=== PATIENT | male | born 1990 | race Caucasian/White ===

== ENCOUNTER 2021-08-14 18:43 | Emergency (ER) | payer MEDICAID ==
[~2021-08-14] VITALS: Ht 190.5 cm; Wt 104.3 kg
[2021-08-14 20:09] LABS: Basophils # (auto) 0 10 ^3/uL (0-0.2); Basophils % (auto) 0.4 % (0.0-2.0); Eosinophils # (auto) 0.1 10 ^3/uL (0-0.8); Eosinophils % (auto) 0.9 % (0.0-7.0); Hematocrit 44.6 % (41.0-53.0); Hemoglobin 15.1 g/dL (13.5-17.5); Lymphocytes # (auto) 2.2 10 ^3/uL (0.4-5.4); Lymphocytes % (auto) 18.9 % (10.0-50.0); Mean Corpuscular Hemoglobin 29.4 pg (28.0-32.0); Mean Corpuscular Hgb Conc. 33.9 g/dL (32.0-36.0); Mean Corpuscular Volume 86.8 fL (80.0-100.0); Monocytes # (auto) 0.9 10 ^3/uL (0-1.3); Monocytes % (auto) 7.9 % (0.0-12.0); Neutrophils # (auto) 8.5 10 ^3/uL (1.6-8.6); Neutrophils % (auto) 71.9 % (37.0-80.0); Nucleated Red Blood Cells % 0.1 %; Red Blood Cells 5.14 10^6/uL (4.5-5.90); Red Cell Distribution Width 13.7 % (11.8-14.3); White Blood Cell 11.8 10^3/uL (4.4-10.8)
[2021-08-14 20:26] LABS: Potassium 4.1 mmol/L (3.5-5.1)
[2021-08-14 20:37] LABS: Albumin 4.8 g/dL (3.4-5.0); BUN/Creatinine Ratio 10.7; Bilirubin, Total 0.4 mg/dL (0.2-1.0); Calcium 10.2 mg/dL (8.5-10.1); Total Protein 8.8 g/dL (6.4-8.2)
[2021-08-15] MEDS ORDERED: PERCOT PO (02:00)
[2021-08-15] MEDS ORDERED: CIPR-173 PO (02:00)
[2021-08-15 02:27] VITALS: BP 159/110
== END 2021-08-15 02:29 | disposition home or self-care (01) ==
LOC: ER 18:43
DX: K29.70 Gastritis, unspecified, without bleeding (principal)
CPT/HCPCS: 36415; 74176; 80053; 83690; 84484; 85025; 93005

== ENCOUNTER 2023-03-15 20:23 | Emergency (ER) | payer MEDICAID ==
[~2023-03-15] VITALS: Ht 182.9 cm; Wt 113.0 kg
[~2023-03-15 20:23] MED LIST: CIPR-173 PO; PERCOT PO
[2023-03-15 21:30] LABS: Basophils # (auto) 0 10 ^3/uL (0-0.2); Basophils % (auto) 0.4 % (0.0-2.0); Eosinophils # (auto) 0.1 10 ^3/uL (0-0.8); Eosinophils % (auto) 0.5 % (0.0-7.0); Hematocrit 45.3 % (41.0-53.0); Hemoglobin 14.6 g/dL (13.5-17.5); Lymphocytes # (auto) 2.2 10 ^3/uL (0.4-5.4); Lymphocytes % (auto) 18.3 % (10.0-50.0); Mean Corpuscular Hemoglobin 28.2 pg (28.0-32.0); Mean Corpuscular Hgb Conc. 32.4 g/dL (32.0-36.0); Mean Corpuscular Volume 87.1 fL (80.0-100.0); Monocytes # (auto) 0.7 10 ^3/uL (0-1.3); Monocytes % (auto) 5.6 % (0.0-12.0); Neutrophils % (auto) 75.2 % (37.0-80.0); Nucleated Red Blood Cells % 0.1 %; Red Cell Distribution Width 13.5 % (11.8-14.3)
[2023-03-15 21:51] LABS: Alanine Aminotransferase 33 U/L (7-40); Albumin 5.3 g/dL (3.2-4.8); Alkaline Phosphatase 51 U/L (46-116); Anion Gap 10 (5-15); Aspartate Aminotransferase 17 U/L (13-40); BUN/Creatinine Ratio 11.9 (10.0-20.0); Blood Alcohol 276.8 mg/dL (<10); Blood Urea Nitrogen 12 mg/dL (9-23); Calcium 9.1 mg/dL (8.7-10.4); Carbon Dioxide 24 mmol/L (20-30); Chloride 108 mmol/L (98-107); Glucose 116 mg/dL (74-106); Potassium 3.8 mmol/L (3.5-5.1); Sodium 142 mmol/L (136-145)
[2023-03-15 21:52] LABS: Bilirubin, Total 0.4 mg/dL (0.2-1.0); Total Protein 7.9 g/dL (5.7-8.2)
[2023-03-15] MEDS ORDERED: SODIUM CHLORIDE 0.9% 1,000 ML IV ONE (22:15)
[2023-03-15 22:58] VITALS: PULSE 119; RESP 20; O2SAT 100
[2023-03-15] MEDS ORDERED: HYDROcodone-ACET 10/325MG TAB PO ONE (23:00)
[2023-03-15] MEDS ORDERED: ONDANSETRON HCL 4 MG/2 ML VIAL IV ONE (23:15)
[2023-03-15] MEDS ORDERED: KETOROLAC TROMETH 30 MG/ML 1ML VIAL IV ONE (23:15)
[2023-03-15] MEDS ORDERED: ONDANSETRON HCL 4 MG/2 ML VIAL ONE (23:58)
[2023-03-16] MEDS ORDERED: KETOROLAC TROMETH 30 MG/ML 1ML VIAL ONE
[2023-03-16] MEDS ORDERED: HYDROcodone-ACET 10/325MG TAB ONE
[2023-03-16] MEDS ORDERED: HYDROmorphone HCL 2 MG/ML VL/or syr IM ONE (01:30)
[2023-03-16] MEDS ORDERED: IBUP-1456 PO (02:10)
[2023-03-16] MEDS ORDERED: PERCOT PO (02:10)
[2023-03-16 03:08] VITALS: BP 121/52; PULSE 113; RESP 18; TEMP 99; O2SAT 93
[2023-03-16] MEDS ORDERED: HYDR-3682 PO (10:56)
[2023-03-17] MEDS ORDERED: SIMV20TA20 PO (22:59)
== END 2023-03-16 03:09 | disposition home or self-care (01) ==
LOC: ER 20:23
DX: S82.302A Unspecified fracture of lower end of left tibia, initial encounter for closed fracture (principal); S82.832A Other fracture of upper and lower end of left fibula, initial encounter for closed fracture; Z79.2 Long term (current) use of antibiotics; Z79.899 Other long term (current) drug therapy; X58.XXXA Exposure to other specified factors, initial encounter; Y93.89 Activity, other specified; Y92.89 Other specified places as the place of occurrence of the external cause; Y99.8 Other external cause status
CPT/HCPCS: 29515; 36415; 72170; 73552; 73590; 80053; 80320; 85025; 96361; 96372; 96374; 96375; 99284; J1170; J1885; J2405; J7030

== ENCOUNTER 2023-03-16 08:28 | Emergency (ER) | payer MEDICAID ==
[~2023-03-16] VITALS: Ht 188 cm; Wt 105.0 kg
[~2023-03-16 08:28] MED LIST changes: +IBUP-1456 PO
[2023-03-16] MEDS ORDERED: LORazepam 0.5 MG TAB PO ONE (09:00)
[2023-03-16 09:38] VITALS: BP 158/86; PULSE 107; RESP 18; TEMP 98.2; O2SAT 99
[2023-03-16] MEDS: HYDROcodone-ACET 5/325MG TAB PO ONE ×2 (09:45→10:26)
[2023-03-16] MEDS ORDERED: ONDANSETRON ODT 4 MG TAB PO ONE (10:45)
[2023-03-16] MEDS ORDERED: HYDR-3682 PO (10:56)
[2023-03-17] MEDS ORDERED: SIMV20TA20 PO (22:59)
== END 2023-03-16 12:46 | disposition home or self-care (01) ==
LOC: ER 08:28
DX: S82.202D Unspecified fracture of shaft of left tibia, subsequent encounter for closed fracture with routine healing (principal); S82.402D Unspecified fracture of shaft of left fibula, subsequent encounter for closed fracture with routine healing; F41.0 Panic disorder [episodic paroxysmal anxiety]; X58.XXXD Exposure to other specified factors, subsequent encounter

== ENCOUNTER 2023-03-17 17:48 | Inpatient (IN) | payer MEDICAID ==
[~2023-03-17] VITALS: Ht 188 cm; Wt 127.3 kg
[~2023-03-17 17:48] MED LIST changes: +HYDR-3682 PO
[2023-03-17] MEDS ORDERED: ONDANSETRON ODT 4 MG TAB PO ONE (20:45)
[2023-03-17] MEDS ORDERED: HYDROmorphone HCL 2 MG/ML VL/or syr IM ONE (20:45)
[2023-03-17] MEDS ORDERED: ENOXAPARIN SOD 100 MG/1 ML SYRINGE SC ONE (22:00)
[2023-03-17 22:25] LABS: Basophils # (auto) 0 10 ^3/uL (0-0.2); Basophils % (auto) 0.4 % (0.0-2.0); Eosinophils # (auto) 0.1 10 ^3/uL (0-0.8); Eosinophils % (auto) 0.4 % (0.0-7.0); Hematocrit 39.4 % (41.0-53.0); Hemoglobin 12.9 g/dL (13.5-17.5); Lymphocytes # (auto) 2.4 10 ^3/uL (0.4-5.4); Lymphocytes % (auto) 20.9 % (10.0-50.0); Mean Corpuscular Hemoglobin 28.1 pg (28.0-32.0); Mean Corpuscular Hgb Conc. 32.7 g/dL (32.0-36.0); Mean Corpuscular Volume 86.1 fL (80.0-100.0); Monocytes # (auto) 1.1 10 ^3/uL (0-1.3); Monocytes % (auto) 9.2 % (0.0-12.0); Neutrophils # (auto) 7.9 10 ^3/uL (1.6-8.6); Neutrophils % (auto) 69.1 % (37.0-80.0); Red Blood Cells 4.58 10^6/uL (4.5-5.90); Red Cell Distribution Width 13.9 % (11.8-14.3); White Blood Cell 11.5 10^3/uL (4.4-10.8)
[2023-03-17 22:27] LABS: Alanine Aminotransferase 29 U/L (7-40); Albumin 4.9 g/dL (3.2-4.8); Alkaline Phosphatase 57 U/L (46-116); Anion Gap 7 (5-15); Aspartate Aminotransferase 24 U/L (13-40); Bilirubin, Total 0.5 mg/dL (0.2-1.0); Blood Urea Nitrogen 10 mg/dL (9-23); Carbon Dioxide 27 mmol/L (20-30); Chloride 105 mmol/L (98-107); Glucose 101 mg/dL (74-106); Potassium 3.7 mmol/L (3.5-5.1); Sodium 139 mmol/L (136-145); Total Protein 7.3 g/dL (5.7-8.2)
[2023-03-17 22:37] LABS: INR 0.93 (0.9-1.15); Partial Thromboplastin Time 26.6 SEC (24.5-34.5); Prothrombin Time 9.8 sec (9.3-11.8)
[2023-03-17] MEDS ORDERED: cefTRIAXone 1GM/50ML D5W 50 ML IV ONE (22:45)
[2023-03-17] MEDS ORDERED: ACETAMINOPHEN 325 MG TAB PO PRN (22:45)
[2023-03-17] MEDS ORDERED: SIMV20TA20 PO (22:59)
[2023-03-18] MEDS: SODIUM CHLORIDE 0.9% 1,000 ML IV SCH ×4 (01:17→18:45)
[2023-03-18] MEDS: ONDANSETRON HCL 4 MG/2 ML VIAL IV PRN ×5 (01:41→23:18)
[2023-03-18] MEDS: MORPHINE SULFATE INJ 2 MG/ml SYRG IV PRN ×4 (01:43→23:19)
[2023-03-18 05:06] LABS: Basophils # (auto) 0 10 ^3/uL (0-0.2); Basophils % (auto) 0.4 % (0.0-2.0); Eosinophils # (auto) 0 10 ^3/uL (0-0.8); Eosinophils % (auto) 0.2 % (0.0-7.0); Hematocrit 35.9 % (41.0-53.0); Hemoglobin 11.9 g/dL (13.5-17.5); Lymphocytes # (auto) 2.2 10 ^3/uL (0.4-5.4); Lymphocytes % (auto) 21.1 % (10.0-50.0); Mean Corpuscular Hemoglobin 28.5 pg (28.0-32.0); Mean Corpuscular Hgb Conc. 33.2 g/dL (32.0-36.0); Mean Corpuscular Volume 85.7 fL (80.0-100.0); Monocytes % (auto) 9.3 % (0.0-12.0); Neutrophils # (auto) 7.2 10 ^3/uL (1.6-8.6); Nucleated Red Blood Cells % 0.2 %; Red Blood Cells 4.18 10^6/uL (4.5-5.90); Red Cell Distribution Width 13.6 % (11.8-14.3); White Blood Cell 10.5 10^3/uL (4.4-10.8)
[2023-03-18 05:29] LABS: Alanine Aminotransferase 25 U/L (7-40); Albumin 4.5 g/dL (3.2-4.8); Alkaline Phosphatase 51 U/L (46-116); Anion Gap 8 (5-15); Aspartate Aminotransferase 21 U/L (13-40); Bilirubin, Total 0.7 mg/dL (0.2-1.0); Blood Urea Nitrogen 9 mg/dL (9-23); Calcium 8.4 mg/dL (8.7-10.4); Carbon Dioxide 25 mmol/L (20-30); Chloride 105 mmol/L (98-107); Glucose 114 mg/dL (74-106); Potassium 3.3 mmol/L (3.5-5.1); Sodium 138 mmol/L (136-145)
[2023-03-18 05:30] LABS: Total Protein 6.5 g/dL (5.7-8.2)
[2023-03-18] MEDS: HYDROcodone-ACET 5/325MG TAB PO PRN ×3 (05:48→21:05)
[2023-03-18 07:30] VITALS: PULSE 100; RESP 13; O2SAT 96
[2023-03-18] MEDS: cefTRIAXone 1GM/50ML D5W 50 ML IV SCH (09:09)
[2023-03-18] MEDS: HEPARIN DRIP/D5W 100UNITS/ML 250 ML IV SCH ×3 (09:49→23:00)
[2023-03-18] MEDS: PANTOPRAZOLE 40 MG/10 ML VIAL INJ IV SCH (11:44)
[2023-03-18] MEDS ORDERED: MORPHINE SULFATE 4 MG/ML SYR/VIAL IV PRN (13:45)
[2023-03-18 16:45] LABS: INR 0.97 (0.9-1.15); Partial Thromboplastin Time 48.1 SEC (24.5-34.5); Prothrombin Time 10.2 sec (9.3-11.8)
[2023-03-18 22:35] VITALS: BP 120/85; PULSE 94; RESP 18; TEMP 98.4; O2SAT 95
[2023-03-19] MEDS: SODIUM CHLORIDE 0.9% 1,000 ML IV SCH ×5 (00:18→21:40)
[2023-03-19 00:22] LABS: INR 0.97 (0.9-1.15); Partial Thromboplastin Time 61.6 SEC (24.5-34.5); Prothrombin Time 10.2 sec (9.3-11.8)
[2023-03-19] MEDS: HYDROcodone-ACET 5/325MG TAB PO PRN ×2 (03:14→20:36)
[2023-03-19 05:00] VITALS: BP 122/77; PULSE 91; RESP 18; TEMP 98.1; O2SAT 95
[2023-03-19 06:08] LABS: Basophils # (auto) 0 10 ^3/uL (0-0.2); Basophils % (auto) 0.6 % (0.0-2.0); Eosinophils # (auto) 0.1 10 ^3/uL (0-0.8); Eosinophils % (auto) 1.2 % (0.0-7.0); Hematocrit 34.1 % (41.0-53.0); Hemoglobin 11.4 g/dL (13.5-17.5); Lymphocytes # (auto) 2.6 10 ^3/uL (0.4-5.4); Lymphocytes % (auto) 34.8 % (10.0-50.0); Mean Corpuscular Hemoglobin 29.1 pg (28.0-32.0); Mean Corpuscular Hgb Conc. 33.4 g/dL (32.0-36.0); Monocytes # (auto) 0.7 10 ^3/uL (0-1.3); Monocytes % (auto) 9.5 % (0.0-12.0); Neutrophils # (auto) 4.1 10 ^3/uL (1.6-8.6); Neutrophils % (auto) 53.9 % (37.0-80.0); Nucleated Red Blood Cells % 0.1 %; Red Blood Cells 3.92 10^6/uL (4.5-5.90); Red Cell Distribution Width 13.5 % (11.8-14.3); White Blood Cell 7.5 10^3/uL (4.4-10.8)
[2023-03-19 06:26] LABS: INR 0.98 (0.9-1.15); Prothrombin Time 10.3 sec (9.3-11.8)
[2023-03-19 06:36] LABS: Partial Thromboplastin Time 82.4 SEC (24.5-34.5)
[2023-03-19 07:30] VITALS: PULSE 89; RESP 19; O2SAT 100
[2023-03-19] MEDS: MORPHINE SULFATE INJ 2 MG/ml SYRG IV PRN ×2 (08:55→16:52)
[2023-03-19] MEDS: PANTOPRAZOLE 40 MG/10 ML VIAL INJ IV SCH (08:56)
[2023-03-19] MEDS: cefTRIAXone 1GM/50ML D5W 50 ML IV SCH (08:56)
[2023-03-19 09:00] VITALS: BP_SYST 119; BP_SYST 139; BP_DIAS 63; BP_DIAS 89; PULSE 81; PULSE 89; RESP 20; TEMP 97.6; TEMP 98.9; O2SAT 93; O2SAT 99
[2023-03-19 12:26] LABS: Basophils # (auto) 0 10 ^3/uL (0-0.2); Basophils % (auto) 0.5 % (0.0-2.0); Eosinophils # (auto) 0 10 ^3/uL (0-0.8); Eosinophils % (auto) 0.3 % (0.0-7.0); Hematocrit 37.1 % (41.0-53.0); Hemoglobin 12.3 g/dL (13.5-17.5); Lymphocytes # (auto) 1.2 10 ^3/uL (0.4-5.4); Lymphocytes % (auto) 13.4 % (10.0-50.0); Mean Corpuscular Hemoglobin 28.9 pg (28.0-32.0); Mean Corpuscular Hgb Conc. 33.2 g/dL (32.0-36.0); Monocytes # (auto) 0.6 10 ^3/uL (0-1.3); Monocytes % (auto) 7.2 % (0.0-12.0); Neutrophils % (auto) 78.6 % (37.0-80.0); Nucleated Red Blood Cells % 0.1 %; Red Blood Cells 4.27 10^6/uL (4.5-5.90); Red Cell Distribution Width 13.4 % (11.8-14.3); White Blood Cell 8.9 10^3/uL (4.4-10.8)
[2023-03-19 12:41] LABS: Alanine Aminotransferase 28 U/L (7-40); Albumin 4.8 g/dL (3.2-4.8); Alkaline Phosphatase 52 U/L (46-116); Anion Gap 10 (5-15); Aspartate Aminotransferase 21 U/L (13-40); BUN/Creatinine Ratio 6.5 (10.0-20.0); Bilirubin, Total 0.7 mg/dL (0.2-1.0); Blood Urea Nitrogen 6 mg/dL (9-23); Calcium 9.4 mg/dL (8.5-10.1); Carbon Dioxide 26 mmol/L (20-30); Chloride 104 mmol/L (98-107); Glucose 100 mg/dL (74-106); Potassium 3.7 mmol/L (3.5-5.1); Sodium 140 mmol/L (136-145); Total Protein 7.2 g/dL (5.7-8.2)
[2023-03-19 13:00] VITALS: BP 122/76; PULSE 97; RESP 22; TEMP 98.5; O2SAT 97
[2023-03-19 14:31] LABS: Urine Bacteria NONE SEEN /hpf (None Seen); Urine Blood Negative /uL (Negative); Urine Clarity Clear (Clear); Urine Color Colorless (Yellow); Urine Protein, UAD Negative (Negative); Urine Specific Gravity 1.011 (1.001-1.035); Urine Urobilinogen Normal (Negative); Urine WBC <1 /hpf (0 - 3); Urine pH 6.5 (5.0-8.0)
[2023-03-19 14:50] LABS: Amphetamine Screen, Urine Neg (NEGATIVE); Barbiturate Scree,Urine Neg (NEGATIVE); Benzodiazephine Screen, Urine Neg (NEGATIVE); Cocaine Screen, Urine Neg (NEGATIVE); Opiate Scree,Urine Pos (NEGATIVE)
[2023-03-19 14:51] LABS: Cannabinoid Screen, Urine Neg (NEGATIVE); Phencyclidine Screen, Urine Neg (NEGATIVE)
[2023-03-19] MEDS ORDERED: LIDOCAINE HCL (LOCAL ANESTH.) 0.5 % 50ML MDV IJ ONE (14:59)
[2023-03-19] MEDS ORDERED: TRANEXAMIC ACID 0 ML ONE (14:59)
[2023-03-19] MEDS: ONDANSETRON HCL 4 MG/2 ML VIAL IV PRN (17:03)
[2023-03-19 20:00] VITALS: RESP 17
[2023-03-19] MEDS: ATORVASTATIN 20 MG TAB PO SCH (21:27)
[2023-03-19 22:00] VITALS: BP 118/67; PULSE 101; RESP 20; TEMP 98.9; O2SAT 96
[2023-03-20] VITALS (7 sets, daily range): BP systolic 105–118; BP diastolic 50–80; PULSE 60–92; RESP 16–20; TEMP 97.7–98.7; O2SAT 96–98
[2023-03-20] MEDS: ONDANSETRON HCL 4 MG/2 ML VIAL IV PRN ×2 (00:06→06:16)
[2023-03-20] MEDS: MORPHINE SULFATE INJ 2 MG/ml SYRG IV PRN ×3 (00:07→10:59)
[2023-03-20] MEDS: SODIUM CHLORIDE 0.9% 1,000 ML IV SCH ×2 (04:20→06:47)
[2023-03-20] MEDS: cefTRIAXone 1GM/50ML D5W 50 ML IV SCH (09:31)
[2023-03-20] MEDS: PANTOPRAZOLE 40 MG/10 ML VIAL INJ IV SCH (09:31)
[2023-03-20] MEDS: HYDROcodone-ACET 5/325MG TAB PO PRN ×2 (09:31→16:09)
[2023-03-20] MEDS ORDERED: VANCOMYCIN PER PHARMACY 0 MG IV SCH (11:45)
[2023-03-20] MEDS ORDERED: VANCOMYCIN 1GM/200ML 200 ML IV ONE (12:00)
[2023-03-20] MEDS: APIXABAN 5 MG TAB PO SCH (14:08)
[2023-03-20] MEDS: chlordiazePOXIDE HCL 25 MG CAP PO SCH ×2 (14:09→20:22)
[2023-03-20] MEDS: LORazepam 2MG/ML-1ML VIAL IV PRN ×2 (14:14→23:46)
[2023-03-20] MEDS ORDERED: VANCOMYCIN 1GM/200ML 200 ML IV SCH (14:45)
[2023-03-20] MEDS: FOLIC ACID 1 MG, MULTIPLE VITAMIN 10 ML, MAGNESIUM SULF SDV 50% 8 MEQ, THIAMINE INJ 100... INJ SCH ×5 (18:20)
[2023-03-20] MEDS: ATORVASTATIN 20 MG TAB PO SCH (22:00)
[2023-03-20] MEDS: VANCOMYCIN 1GM/200ML 200 ML IV SCH (22:00)
[2023-03-21] MEDS: SODIUM CHLORIDE 0.9% 1,000 ML IV SCH ×4 (00:20→20:20)
[2023-03-21] MEDS: HYDROcodone-ACET 5/325MG TAB PO PRN ×3 (03:56→16:22)
[2023-03-21] MEDS: chlordiazePOXIDE HCL 25 MG CAP PO SCH ×3 (04:33→21:47)
[2023-03-21 05:00] VITALS: BP 116/75; PULSE 82; RESP 16; TEMP 97.9; O2SAT 95
[2023-03-21 05:37] LABS: Chloride 104 mmol/L (98-107); Potassium 3.6 mmol/L (3.5-5.1); Sodium 138 mmol/L (136-145)
[2023-03-21 05:38] LABS: Anion Gap 9 (5-15); Calcium 8.7 mg/dL (8.7-10.4); Carbon Dioxide 25 mmol/L (20-30)
[2023-03-21 05:43] LABS: BUN/Creatinine Ratio 10.8 (10.0-20.0); Blood Urea Nitrogen 10 mg/dL (9-23); Glucose 119 mg/dL (74-106)
[2023-03-21] MEDS: VANCOMYCIN 1GM/200ML 200 ML IV SCH ×3 (06:01→21:49)
[2023-03-21] MEDS: MORPHINE SULFATE INJ 2 MG/ml SYRG IV PRN ×3 (06:01→18:59)
[2023-03-21] MEDS: ONDANSETRON HCL 4 MG/2 ML VIAL IV PRN ×2 (06:01→19:11)
[2023-03-21] MEDS: LORazepam 2MG/ML-1ML VIAL IV PRN ×3 (06:55→21:55)
[2023-03-21 08:35] VITALS: BP 124/69; PULSE 89; RESP 16; TEMP 98.3; O2SAT 94
[2023-03-21] MEDS: APIXABAN 5 MG TAB PO SCH (08:48)
[2023-03-21] MEDS: PANTOPRAZOLE 40 MG/10 ML VIAL INJ IV SCH (08:48)
[2023-03-21] MEDS: cefTRIAXone 1GM/50ML D5W 50 ML IV SCH (08:49)
[2023-03-21 17:00] VITALS: BP 94/57; PULSE 90; RESP 16; TEMP 98.3; O2SAT 95
[2023-03-21] MEDS: FLUoxetine HCL 10 MG CAP PO SCH (18:41)
[2023-03-21] MEDS: FOLIC ACID 1 MG, MULTIPLE VITAMIN 10 ML, MAGNESIUM SULF SDV 50% 8 MEQ, THIAMINE INJ 100... INJ SCH ×5 (18:50)
[2023-03-21] MEDS: ATORVASTATIN 20 MG TAB PO SCH (21:48)
[2023-03-21 23:28] VITALS: BP 109/78; PULSE 95; RESP 18; TEMP 99.5; O2SAT 94
[2023-03-22] VITALS (7 sets, daily range): BP systolic 111–131; BP diastolic 62–81; PULSE 88–104; RESP 16–19; TEMP 97.8–98.5; O2SAT 92–97
[2023-03-22] MEDS: HYDROcodone-ACET 5/325MG TAB PO PRN ×4 (02:32→20:08)
[2023-03-22] MEDS: SODIUM CHLORIDE 0.9% 1,000 ML IV SCH ×4 (03:00→17:56)
[2023-03-22] MEDS: LORazepam 2MG/ML-1ML VIAL IV PRN ×2 (04:06→20:57)
[2023-03-22] MEDS: VANCOMYCIN 1GM/200ML 200 ML IV SCH ×3 (05:53→22:40)
[2023-03-22] MEDS: ONDANSETRON HCL 4 MG/2 ML VIAL IV PRN ×2 (05:53→17:53)
[2023-03-22] MEDS: MORPHINE SULFATE INJ 2 MG/ml SYRG IV PRN ×3 (05:54→17:56)
[2023-03-22] MEDS: FLUoxetine HCL 10 MG CAP PO SCH ×2 (10:00→11:00)
[2023-03-22] MEDS: APIXABAN 5 MG TAB PO SCH (10:27)
[2023-03-22] MEDS: PANTOPRAZOLE 40 MG/10 ML VIAL INJ IV SCH (10:28)
[2023-03-22] MEDS: chlordiazePOXIDE HCL 25 MG CAP PO SCH ×2 (10:28→22:40)
[2023-03-22] MEDS: cefTRIAXone 1GM/50ML D5W 50 ML IV SCH (10:28)
[2023-03-22] MEDS: FOLIC ACID 1 MG, MULTIPLE VITAMIN 10 ML, MAGNESIUM SULF SDV 50% 8 MEQ, THIAMINE INJ 100... INJ SCH ×5 (17:44)
[2023-03-22] MEDS: ATORVASTATIN 20 MG TAB PO SCH (22:40)
[2023-03-22] MEDS: ENOXAPARIN SOD 100 MG/1 ML SYRINGE SC SCH (22:41)
[2023-03-23] MEDS: MORPHINE SULFATE INJ 2 MG/ml SYRG IV PRN ×4 (01:00→21:42)
[2023-03-23] MEDS: ONDANSETRON HCL 4 MG/2 ML VIAL IV PRN ×4 (01:01→21:41)
[2023-03-23 05:00] VITALS: BP 112/73; PULSE 98; RESP 18; TEMP 98.4; O2SAT 93
[2023-03-23] MEDS: HYDROcodone-ACET 5/325MG TAB PO PRN ×4 (05:13→22:43)
[2023-03-23] MEDS: VANCOMYCIN 1GM/200ML 200 ML IV SCH ×3 (05:14→22:08)
[2023-03-23] MEDS: SODIUM CHLORIDE 0.9% 1,000 ML IV SCH ×2 (06:55→08:35)
[2023-03-23 08:00] VITALS: PULSE 92; RESP 18
[2023-03-23 08:21] LABS: Chloride 102 mmol/L (98-107); Potassium 4.1 mmol/L (3.5-5.1); Sodium 137 mmol/L (136-145)
[2023-03-23 08:22] LABS: Anion Gap 8 (5-15); Carbon Dioxide 27 mmol/L (20-30)
[2023-03-23 08:23] LABS: Calcium 9.8 mg/dL (8.5-10.1)
[2023-03-23 08:28] LABS: BUN/Creatinine Ratio 10.3 (10.0-20.0); Blood Urea Nitrogen 10 mg/dL (9-23); Glucose 98 mg/dL (74-106)
[2023-03-23] MEDS: PANTOPRAZOLE 40 MG/10 ML VIAL INJ IV SCH (08:33)
[2023-03-23] MEDS: ENOXAPARIN SOD 100 MG/1 ML SYRINGE SC SCH (08:33)
[2023-03-23] MEDS: cefTRIAXone 1GM/50ML D5W 50 ML IV SCH (08:34)
[2023-03-23] MEDS: DOCUSATE SOD 100 MG CAP PO PRN (08:34)
[2023-03-23 09:00] VITALS: BP 111/71; PULSE 97; RESP 19; TEMP 97.8; O2SAT 98
[2023-03-23] MEDS: FLUoxetine HCL 10 MG CAP PO SCH (10:00)
[2023-03-23] MEDS ORDERED: chlordiazePOXIDE HCL 25 MG CAP PO SCH (12:00)
[2023-03-23 13:00] VITALS: BP 121/80; PULSE 108; RESP 18; TEMP 97.7; O2SAT 96
[2023-03-23 17:00] VITALS: BP 108/70; PULSE 97; RESP 19; TEMP 98.2; O2SAT 96
[2023-03-23] MEDS: FOLIC ACID 1 MG, MULTIPLE VITAMIN 10 ML, MAGNESIUM SULF SDV 50% 8 MEQ, THIAMINE INJ 100... INJ SCH ×5 (18:13)
[2023-03-23 20:00] VITALS: PULSE 99; RESP 17
[2023-03-23] MEDS: chlordiazePOXIDE HCL 25 MG CAP PO SCH (20:31)
[2023-03-23] MEDS: ATORVASTATIN 20 MG TAB PO SCH (22:07)
[2023-03-23] MEDS: ENOXAPARIN SOD 120 MG/0.8 ML SYRINGE SC SCH (22:07)
[2023-03-24] VITALS (7 sets, daily range): BP systolic 96–108; BP diastolic 49–65; PULSE 74–95; RESP 15–20; TEMP 97.4–98.5; O2SAT 95–97
[2023-03-24] MEDS: SODIUM CHLORIDE 0.9% 1,000 ML IV SCH ×5 (01:40→22:00)
[2023-03-24] MEDS: MELATONIN 5 MG TAB PO SCH ×2 (01:44→21:59)
[2023-03-24] MEDS: chlordiazePOXIDE HCL 25 MG CAP PO SCH ×3 (04:27→19:58)
[2023-03-24] MEDS: HYDROcodone-ACET 5/325MG TAB PO PRN ×5 (05:01→22:11)
[2023-03-24] MEDS: ONDANSETRON HCL 4 MG/2 ML VIAL IV PRN (05:43)
[2023-03-24] MEDS: MORPHINE SULFATE INJ 2 MG/ml SYRG IV PRN (05:46)
[2023-03-24] MEDS: VANCOMYCIN 1GM/200ML 200 ML IV SCH ×3 (05:59→22:00)
[2023-03-24 06:01] LABS: Basophils # (auto) 0.1 10 ^3/uL (0-0.2); Basophils % (auto) 0.7 % (0.0-2.0); Eosinophils # (auto) 0.1 10 ^3/uL (0-0.8); Eosinophils % (auto) 1.4 % (0.0-7.0); Hematocrit 39.3 % (41.0-53.0); Lymphocytes # (auto) 1.7 10 ^3/uL (0.4-5.4); Lymphocytes % (auto) 19.8 % (10.0-50.0); Mean Corpuscular Hemoglobin 28.6 pg (28.0-32.0); Mean Corpuscular Hgb Conc. 33.2 g/dL (32.0-36.0); Mean Corpuscular Volume 86.3 fL (80.0-100.0); Monocytes # (auto) 0.8 10 ^3/uL (0-1.3); Monocytes % (auto) 10.1 % (0.0-12.0); Neutrophils # (auto) 5.7 10 ^3/uL (1.6-8.6); Red Blood Cells 4.55 10^6/uL (4.5-5.90); Red Cell Distribution Width 13.2 % (11.8-14.3); White Blood Cell 8.4 10^3/uL (4.4-10.8)
[2023-03-24 06:19] LABS: Alanine Aminotransferase 21 U/L (7-40); Albumin 5.1 g/dL (3.2-4.8); Alkaline Phosphatase 56 U/L (46-116); Anion Gap 8 (5-15); Aspartate Aminotransferase 11 U/L (13-40); BUN/Creatinine Ratio 10.6 (10.0-20.0); Bilirubin, Total 0.9 mg/dL (0.2-1.0); Blood Urea Nitrogen 11 mg/dL (9-23); Calcium 9.8 mg/dL (8.7-10.4); Carbon Dioxide 27 mmol/L (20-30); Chloride 102 mmol/L (98-107); Glucose 112 mg/dL (74-106); Potassium 4.2 mmol/L (3.5-5.1); Sodium 137 mmol/L (136-145); Total Protein 7.8 g/dL (5.7-8.2)
[2023-03-24] MEDS: PANTOPRAZOLE 40 MG/10 ML VIAL INJ IV SCH (08:37)
[2023-03-24] MEDS: FLUoxetine HCL 10 MG CAP PO SCH (08:37)
[2023-03-24] MEDS: cefTRIAXone 1GM/50ML D5W 50 ML IV SCH (08:38)
[2023-03-24] MEDS: ENOXAPARIN SOD 120 MG/0.8 ML SYRINGE SC SCH ×2 (08:38→21:59)
[2023-03-24] MEDS: FOLIC ACID 1 MG, MULTIPLE VITAMIN 10 ML, MAGNESIUM SULF SDV 50% 8 MEQ, THIAMINE INJ 100... INJ SCH ×5 (17:47)
[2023-03-24] MEDS: ATORVASTATIN 20 MG TAB PO SCH (21:59)
[2023-03-25] VITALS (7 sets, daily range): BP systolic 98–117; BP diastolic 56–69; PULSE 82–94; RESP 18–20; TEMP 97.5–98.4; O2SAT 97–100
[2023-03-25] MEDS: HYDROcodone-ACET 5/325MG TAB PO PRN ×5 (02:15→21:15)
[2023-03-25] MEDS: chlordiazePOXIDE HCL 25 MG CAP PO SCH ×3 (03:59→19:57)
[2023-03-25] MEDS: SODIUM CHLORIDE 0.9% 1,000 ML IV SCH ×3 (04:20→17:40)
[2023-03-25] MEDS: VANCOMYCIN 1GM/200ML 200 ML IV SCH ×3 (05:54→21:43)
[2023-03-25] MEDS: cefTRIAXone 1GM/50ML D5W 50 ML IV SCH (09:13)
[2023-03-25] MEDS: ENOXAPARIN SOD 120 MG/0.8 ML SYRINGE SC SCH ×2 (09:14→21:43)
[2023-03-25] MEDS: PANTOPRAZOLE 40 MG/10 ML VIAL INJ IV SCH (09:14)
[2023-03-25] MEDS: FLUoxetine HCL 10 MG CAP PO SCH (09:33)
[2023-03-25] MEDS: DOCUSATE SOD 100 MG CAP PO PRN (09:37)
[2023-03-25] MEDS: FOLIC ACID 1 MG, MULTIPLE VITAMIN 10 ML, MAGNESIUM SULF SDV 50% 8 MEQ, THIAMINE INJ 100... INJ SCH ×5 (17:30)
[2023-03-25] MEDS: ATORVASTATIN 20 MG TAB PO SCH (21:44)
[2023-03-25] MEDS: MELATONIN 5 MG TAB PO SCH (21:45)
[2023-03-26] VITALS (8 sets, daily range): BP systolic 91–123; BP diastolic 53–85; PULSE 76–116; RESP 15–20; TEMP 97.2–98.6; O2SAT 91–99
[2023-03-26] MEDS: SODIUM CHLORIDE 0.9% 1,000 ML IV SCH ×4 (00:20→20:20)
[2023-03-26] MEDS: chlordiazePOXIDE HCL 25 MG CAP PO SCH ×3 (04:06→21:47)
[2023-03-26] MEDS: VANCOMYCIN 1GM/200ML 200 ML IV SCH ×3 (06:00→21:51)
[2023-03-26] MEDS: HYDROcodone-ACET 5/325MG TAB PO PRN ×3 (06:07→21:48)
[2023-03-26] MEDS: FLUoxetine HCL 10 MG CAP PO SCH (10:00)
[2023-03-26] MEDS: ENOXAPARIN SOD 120 MG/0.8 ML SYRINGE SC SCH ×2 (10:00→21:51)
[2023-03-26] MEDS: cefTRIAXone 1GM/50ML D5W 50 ML IV SCH (10:14)
[2023-03-26] MEDS: PANTOPRAZOLE 40 MG/10 ML VIAL INJ IV SCH (10:14)
[2023-03-26] MEDS ORDERED: BUPIVACAINE HCL 50 ML ONE (12:10)
[2023-03-26 12:37] LABS: Partial Thromboplastin Time 31.6 SEC (24.5-34.5); Prothrombin Time 10.5 sec (9.3-11.8)
[2023-03-26] MEDS ORDERED: fentaNYL CITRATE 100 MCG/2 ML VL ONE (12:43)
[2023-03-26] MEDS ORDERED: MEPERIDINE HCL (25 MG/ML) 1ML VIAL ONE ×2 (13:19→13:32)
[2023-03-26] MEDS ORDERED: DexAMETHasone SOD PHOS 10MG/1ML VIAL INJ ONE (13:29)
[2023-03-26] MEDS ORDERED: ONDANSETRON HCL 4 MG/2 ML VIAL ONE (13:29)
[2023-03-26] MEDS ORDERED: fentaNYL CITRATE 5 ML ONE (13:37)
[2023-03-26] MEDS ORDERED: ROPIVACAINE 0.5% (5MG/ML) 20ML AMPULE IJ ONE ×2 (13:41→14:18)
[2023-03-26] MEDS: LACTATED RINGER'S 1,000 ML IV SCH (15:15)
[2023-03-26] MEDS ORDERED: HYDROmorphone HCL 2 MG/ML VL/or syr ONE (15:40)
[2023-03-26] MEDS: HYDROmorphone HCL 2 MG/ML VL/or syr IV PRN ×4 (15:40→16:25)
[2023-03-26] MEDS ORDERED: ONDANSETRON HCL 4 MG/2 ML VIAL IV PRN (15:45)
[2023-03-26] MEDS ORDERED: MEPERIDINE HCL (25 MG/ML) 1ML VIAL IV PRN (15:45)
[2023-03-26] MEDS ORDERED: diphenhdrAMINE HCL 50 MG/1 ML VL ONE (16:44)
[2023-03-26] MEDS ORDERED: diphenhdrAMINE HCL 50 MG/1 ML VL IV ONE (16:45)
[2023-03-26] MEDS ORDERED: LORazepam 2MG/ML-1ML VIAL IV ONE (17:15)
[2023-03-26] MEDS: FOLIC ACID 1 MG, MULTIPLE VITAMIN 10 ML, MAGNESIUM SULF SDV 50% 8 MEQ, THIAMINE INJ 100... INJ SCH ×5 (18:45)
[2023-03-26] MEDS: ATORVASTATIN 20 MG TAB PO SCH (21:49)
[2023-03-26] MEDS: MELATONIN 5 MG TAB PO SCH (21:50)
[2023-03-27] VITALS (7 sets, daily range): BP systolic 93–126; BP diastolic 50–80; PULSE 81–107; RESP 16–21; TEMP 97.5–98.5; O2SAT 93–97
[2023-03-27] MEDS: LACTATED RINGER'S 1,000 ML IV SCH ×2 (01:15→11:15)
[2023-03-27] MEDS: HYDROcodone-ACET 5/325MG TAB PO PRN ×3 (01:54→11:12)
[2023-03-27] MEDS: SODIUM CHLORIDE 0.9% 1,000 ML IV SCH ×4 (03:00→23:24)
[2023-03-27] MEDS: chlordiazePOXIDE HCL 25 MG CAP PO SCH ×3 (04:40→20:03)
[2023-03-27 06:54] LABS: Basophils # (auto) 0 10 ^3/uL (0-0.2); Basophils % (auto) 0.2 % (0.0-2.0); Eosinophils # (auto) 0 10 ^3/uL (0-0.8); Hematocrit 33.1 % (41.0-53.0); Hemoglobin 10.9 g/dL (13.5-17.5); Lymphocytes % (auto) 8.7 % (10.0-50.0); Mean Corpuscular Hemoglobin 28.1 pg (28.0-32.0); Mean Corpuscular Hgb Conc. 32.8 g/dL (32.0-36.0); Mean Corpuscular Volume 85.7 fL (80.0-100.0); Monocytes # (auto) 1.2 10 ^3/uL (0-1.3); Monocytes % (auto) 10.5 % (0.0-12.0); Neutrophils # (auto) 9.2 10 ^3/uL (1.6-8.6); Neutrophils % (auto) 80.6 % (37.0-80.0); Red Blood Cells 3.86 10^6/uL (4.5-5.90); White Blood Cell 11.4 10^3/uL (4.4-10.8)
[2023-03-27] MEDS: VANCOMYCIN 1GM/200ML 200 ML IV SCH ×3 (07:03→22:22)
[2023-03-27] MEDS: PANTOPRAZOLE 40 MG/10 ML VIAL INJ IV SCH (11:11)
[2023-03-27] MEDS: DOCUSATE SOD 100 MG CAP PO PRN (11:12)
[2023-03-27] MEDS: ENOXAPARIN SOD 120 MG/0.8 ML SYRINGE SC SCH (11:12)
[2023-03-27] MEDS: cefTRIAXone 1GM/50ML D5W 50 ML IV SCH (11:14)
[2023-03-27] MEDS: FLUoxetine HCL 10 MG CAP PO SCH (11:17)
[2023-03-27] MEDS: HYDROcodone-ACET 10/325MG TAB PO PRN ×2 (15:13→20:03)
[2023-03-27] MEDS: FOLIC ACID 1 MG, MULTIPLE VITAMIN 10 ML, MAGNESIUM SULF SDV 50% 8 MEQ, THIAMINE INJ 100... INJ SCH ×5 (18:03)
[2023-03-27] MEDS: APIXABAN 5 MG TAB PO SCH (22:21)
[2023-03-27] MEDS: ATORVASTATIN 20 MG TAB PO SCH (22:21)
[2023-03-27] MEDS: MELATONIN 5 MG TAB PO SCH (22:22)
[2023-03-28] MEDS: HYDROcodone-ACET 10/325MG TAB PO PRN ×4 (00:18→20:25)
[2023-03-28] MEDS: MORPHINE SULFATE INJ 2 MG/ml SYRG IV PRN ×4 (01:47→23:07)
[2023-03-28] MEDS: chlordiazePOXIDE HCL 25 MG CAP PO SCH ×3 (04:39→20:24)
[2023-03-28 05:00] VITALS: BP 127/73; PULSE 87; RESP 20; TEMP 98.4; O2SAT 97
[2023-03-28] MEDS: SODIUM CHLORIDE 0.9% 1,000 ML IV SCH ×3 (05:40→19:00)
[2023-03-28 08:00] VITALS: PULSE 86; RESP 20; O2SAT 97
[2023-03-28] MEDS: VANCOMYCIN 1GM/200ML 200 ML IV SCH ×3 (08:22→21:30)
[2023-03-28] MEDS: FLUoxetine HCL 10 MG CAP PO SCH (08:25)
[2023-03-28] MEDS: cefTRIAXone 1GM/50ML D5W 50 ML IV SCH (08:25)
[2023-03-28] MEDS: APIXABAN 5 MG TAB PO SCH ×2 (08:25→21:30)
[2023-03-28] MEDS: PANTOPRAZOLE 40 MG/10 ML VIAL INJ IV SCH (08:26)
[2023-03-28] MEDS: ONDANSETRON HCL 4 MG/2 ML VIAL IV PRN ×3 (08:29→17:16)
[2023-03-28 09:00] VITALS: BP 123/81; PULSE 102; RESP 18; TEMP 98.3; O2SAT 94
[2023-03-28 13:00] VITALS: BP 135/86; PULSE 102; RESP 19; TEMP 99; O2SAT 99
[2023-03-28 16:58] VITALS: BP 132/84; PULSE 72; RESP 18; TEMP 98.1; O2SAT 98
[2023-03-28] MEDS: FOLIC ACID 1 MG, MULTIPLE VITAMIN 10 ML, MAGNESIUM SULF SDV 50% 8 MEQ, THIAMINE INJ 100... INJ SCH ×5 (20:06)
[2023-03-28] MEDS: MELATONIN 5 MG TAB PO SCH (21:30)
[2023-03-28] MEDS: ATORVASTATIN 20 MG TAB PO SCH (21:30)
[2023-03-28 22:00] VITALS: BP 127/88; PULSE 113; RESP 20; TEMP 99.1; O2SAT 97
[2023-03-29] MEDS: SODIUM CHLORIDE 0.9% 1,000 ML IV SCH ×4 (01:40→21:40)
[2023-03-29] MEDS: HYDROcodone-ACET 10/325MG TAB PO PRN ×5 (02:11→21:28)
[2023-03-29] MEDS: chlordiazePOXIDE HCL 25 MG CAP PO SCH ×3 (04:26→21:28)
[2023-03-29] MEDS: MORPHINE SULFATE INJ 2 MG/ml SYRG IV PRN ×2 (04:37→10:48)
[2023-03-29 05:00] VITALS: BP 114/77; PULSE 93; RESP 19; TEMP 98.6; O2SAT 97
[2023-03-29] MEDS: VANCOMYCIN 1GM/200ML 200 ML IV SCH ×3 (06:19→21:31)
[2023-03-29 08:00] VITALS: PULSE 89; RESP 17; O2SAT 94
[2023-03-29 09:00] VITALS: BP 115/64; PULSE 89; RESP 17; TEMP 98.4; O2SAT 94
[2023-03-29] MEDS: cefTRIAXone 1GM/50ML D5W 50 ML IV SCH (10:47)
[2023-03-29] MEDS: APIXABAN 5 MG TAB PO SCH ×2 (10:48→21:39)
[2023-03-29] MEDS: PANTOPRAZOLE 40 MG/10 ML VIAL INJ IV SCH (10:48)
[2023-03-29] MEDS: FLUoxetine HCL 10 MG CAP PO SCH (10:49)
[2023-03-29 13:00] VITALS: BP 128/79; PULSE 95; RESP 19; TEMP 97.8; O2SAT 98
[2023-03-29 17:00] VITALS: BP 129/81; PULSE 104; RESP 19; TEMP 97.8; O2SAT 97
[2023-03-29] MEDS: FOLIC ACID 1 MG, MULTIPLE VITAMIN 10 ML, MAGNESIUM SULF SDV 50% 8 MEQ, THIAMINE INJ 100... INJ SCH ×5 (18:10)
[2023-03-29] MEDS: ATORVASTATIN 20 MG TAB PO SCH (21:28)
[2023-03-29] MEDS: MELATONIN 5 MG TAB PO SCH (21:29)
[2023-03-29 22:00] VITALS: BP 132/81; PULSE 102; RESP 19; TEMP 97.8; O2SAT 99
[2023-03-30] VITALS (9 sets, daily range): BP systolic 103–136; BP diastolic 64–91; PULSE 96–113; RESP 16–20; TEMP 97.6–99.3; O2SAT 96–100
[2023-03-30] MEDS: MORPHINE SULFATE INJ 2 MG/ml SYRG IV PRN ×3 (00:18→15:20)
[2023-03-30] MEDS: HYDROcodone-ACET 10/325MG TAB PO PRN ×5 (03:23→22:21)
[2023-03-30] MEDS ORDERED: ALBUTEROL SULF 2.5 MG/0.5ML(0.5%) NEB SOLN NEB ONE (03:45)
[2023-03-30] MEDS ORDERED: ALBUTEROL SULF 2.5 MG/0.5ML(0.5%) NEB SOLN ONE (03:47)
[2023-03-30] MEDS: chlordiazePOXIDE HCL 25 MG CAP PO SCH ×3 (03:48→21:45)
[2023-03-30] MEDS: SODIUM CHLORIDE 0.9% 1,000 ML IV SCH ×3 (04:20→18:04)
[2023-03-30] MEDS: VANCOMYCIN 1GM/200ML 200 ML IV SCH ×3 (05:52→21:48)
[2023-03-30] MEDS: PANTOPRAZOLE 40 MG/10 ML VIAL INJ IV SCH (08:55)
[2023-03-30] MEDS: cefTRIAXone 1GM/50ML D5W 50 ML IV SCH (08:55)
[2023-03-30] MEDS: APIXABAN 5 MG TAB PO SCH ×2 (08:56→21:47)
[2023-03-30] MEDS: FLUoxetine HCL 10 MG CAP PO SCH (09:02)
[2023-03-30] MEDS: ONDANSETRON HCL 4 MG/2 ML VIAL IV PRN (15:28)
[2023-03-30] MEDS: FOLIC ACID 1 MG, MULTIPLE VITAMIN 10 ML, MAGNESIUM SULF SDV 50% 8 MEQ, THIAMINE INJ 100... INJ SCH ×5 (18:00)
[2023-03-30] MEDS: MELATONIN 5 MG TAB PO SCH (21:46)
[2023-03-30] MEDS: ATORVASTATIN 20 MG TAB PO SCH (21:47)
[2023-03-30] MEDS: LORazepam 2MG/ML-1ML VIAL IV PRN (21:48)
[2023-03-31] VITALS (7 sets, daily range): BP systolic 102–112; BP diastolic 59–82; PULSE 92–111; RESP 16–20; TEMP 97.7–98.2; O2SAT 95–99
[2023-03-31] MEDS: SODIUM CHLORIDE 0.9% 1,000 ML IV SCH ×4 (00:20→19:33)
[2023-03-31] MEDS: HYDROcodone-ACET 10/325MG TAB PO PRN ×5 (03:18→19:32)
[2023-03-31] MEDS: chlordiazePOXIDE HCL 25 MG CAP PO SCH ×3 (04:00→19:32)
[2023-03-31] MEDS: VANCOMYCIN 1GM/200ML 200 ML IV SCH ×3 (05:51→21:26)
[2023-03-31] MEDS: cefTRIAXone 1GM/50ML D5W 50 ML IV SCH (08:28)
[2023-03-31] MEDS: PANTOPRAZOLE 40 MG/10 ML VIAL INJ IV SCH (08:28)
[2023-03-31] MEDS: APIXABAN 5 MG TAB PO SCH ×2 (08:29→21:27)
[2023-03-31] MEDS: FLUoxetine HCL 10 MG CAP PO SCH (08:29)
[2023-03-31] MEDS: FOLIC ACID 1 MG, MULTIPLE VITAMIN 10 ML, MAGNESIUM SULF SDV 50% 8 MEQ, THIAMINE INJ 100... INJ SCH ×5 (17:17)
[2023-03-31] MEDS ORDERED: LACTULOSE 20Gm/30ML SOLN PO ONE (20:00)
[2023-03-31] MEDS: ATORVASTATIN 20 MG TAB PO SCH (21:27)
[2023-03-31] MEDS: MELATONIN 5 MG TAB PO SCH (21:28)
[2023-04-01] MEDS: HYDROcodone-ACET 10/325MG TAB PO PRN ×6 (00:28→22:58)
[2023-04-01] MEDS: SODIUM CHLORIDE 0.9% 1,000 ML IV SCH ×4 (03:00→23:00)
[2023-04-01] MEDS: chlordiazePOXIDE HCL 25 MG CAP PO SCH ×3 (04:30→20:27)
[2023-04-01] MEDS: VANCOMYCIN 1GM/200ML 200 ML IV SCH ×2 (04:30→14:40)
[2023-04-01 05:00] VITALS: BP 112/75; PULSE 93; RESP 16; TEMP 96; O2SAT 99
[2023-04-01 09:00] VITALS: BP 102/59; PULSE 73; RESP 20; TEMP 98.2; O2SAT 96
[2023-04-01] MEDS: APIXABAN 5 MG TAB PO SCH ×2 (09:30→21:26)
[2023-04-01] MEDS: PANTOPRAZOLE 40 MG/10 ML VIAL INJ IV SCH (09:30)
[2023-04-01] MEDS: FLUoxetine HCL 10 MG CAP PO SCH (10:00)
[2023-04-01] MEDS: cefTRIAXone 1GM/50ML D5W 50 ML IV SCH (10:12)
[2023-04-01 13:00] VITALS: BP 111/73; PULSE 108; RESP 22; TEMP 98; O2SAT 98
[2023-04-01 17:00] VITALS: BP 99/61; PULSE 97; RESP 18; TEMP 97.6; O2SAT 97
[2023-04-01] MEDS: FOLIC ACID 1 MG, MULTIPLE VITAMIN 10 ML, MAGNESIUM SULF SDV 50% 8 MEQ, THIAMINE INJ 100... INJ SCH ×5 (18:31)
[2023-04-01] MEDS: MELATONIN 5 MG TAB PO SCH (21:26)
[2023-04-01] MEDS: ATORVASTATIN 20 MG TAB PO SCH (21:26)
[2023-04-01 22:00] VITALS: BP 142/77; PULSE 100; RESP 18; TEMP 98.9; O2SAT 100
[2023-04-02] MEDS: HYDROcodone-ACET 10/325MG TAB PO PRN ×3 (03:27→17:26)
[2023-04-02] MEDS: chlordiazePOXIDE HCL 25 MG CAP PO SCH ×3 (04:12→20:00)
[2023-04-02 05:00] VITALS: BP 124/75; PULSE 91; RESP 19; TEMP 98.2; O2SAT 93
[2023-04-02] MEDS: SODIUM CHLORIDE 0.9% 1,000 ML IV SCH ×3 (05:40→19:05)
[2023-04-02 08:00] VITALS: BP 112/73; PULSE 96; RESP 19; TEMP 97.5; O2SAT 100
[2023-04-02 09:00] VITALS: BP 112/73; PULSE 96; RESP 19; TEMP 97.5; O2SAT 100
[2023-04-02] MEDS: FLUoxetine HCL 10 MG CAP PO SCH (10:00)
[2023-04-02] MEDS: APIXABAN 5 MG TAB PO SCH (10:14)
[2023-04-02] MEDS: PANTOPRAZOLE 40 MG/10 ML VIAL INJ IV SCH (10:14)
[2023-04-02] MEDS ORDERED: APIX5TAB PO (13:47)
[2023-04-02] MEDS ORDERED: THIA100T13 PO (13:47)
[2023-04-02] MEDS ORDERED: FOLI-119 PO (13:47)
[2023-04-02] MEDS ORDERED: MELA3TAB27 PO (13:47)
[2023-04-02] MEDS ORDERED: FLUO20TA36 PO (13:47)
[2023-04-02] MEDS ORDERED: CHL25C PO (13:47)
[2023-04-02] MEDS ORDERED: HYDR-4798 PO (13:47)
[2023-04-02 16:44] VITALS: BP 114/77; PULSE 94; RESP 18; TEMP 98; O2SAT 98
[2023-04-02] MEDS ORDERED: HYDR-4611 PO (19:18)
[2023-04-03] MEDS ORDERED: APIXABAN 5 MG TAB PO SCH (22:00)
== END 2023-04-02 20:54 | disposition home health service (06) | DRG 313 ==
LOC: ER 17:48 → EDBD 17:48 → OVERFLOW 22:53 → WEST WING 03-18 21:47
PROVIDERS: ADMIT Nurse Practitioner Family; ATTEND Family Medicine
PROC: 0QSH04Z Reposition Left Tibia with Internal Fixation Device, Open Approach (ICD-10-PCS; principal; 2023-03-26 13:18)
DX: S82.252A Displaced comminuted fracture of shaft of left tibia, initial encounter for closed fracture (principal); J69.0 Pneumonitis due to inhalation of food and vomit; I82.442 Acute embolism and thrombosis of left tibial vein; L03.116 Cellulitis of left lower limb; D72.829 Elevated white blood cell count, unspecified; S82.452A Displaced comminuted fracture of shaft of left fibula, initial encounter for closed fracture; S84.10XA Injury of peroneal nerve at lower leg level, unspecified leg, initial encounter; E78.00 Pure hypercholesterolemia, unspecified; F10.10 Alcohol abuse, uncomplicated; F41.0 Panic disorder [episodic paroxysmal anxiety]; G47.00 Insomnia, unspecified; W18.39XA Other fall on same level, initial encounter; Z79.899 Other long term (current) drug therapy; Z88.6 Allergy status to analgesic agent; Z56.0 Unemployment, unspecified; Y93.89 Activity, other specified; Y92.89 Other specified places as the place of occurrence of the external cause; Y99.8 Other external cause status
CPT/HCPCS: 36415; 71045; 71275; 73590; 76000; 80048; 80053; 80202; 80307; 81001; 82553; 82565; 85025; 85610; 85730; 86850; 86900; 86901; 93971; 94640; 97110; 97116; 97163; 97530; C9113; G0378; J1100; J2405; J3490; Q0162